=== PATIENT | male | born 1970 | race Caucasian/White ===

== ENCOUNTER 2024-10-15 09:19 | Emergency (ER) | payer OTHER, SELFPAY ==
--- NOTE | ~2024-10-15 | XR_ITS ---
XR toe 1st LT min 2V 10/15/2024 10:01 Indication: Dropped brick on toe 6 weeks ago Procedure: 3 views left first toe Comparison: No prior studies for comparison. Findings: Cortical irregularity noted along the dorsal base of the first distal phalanx seen on later al view only. No significant soft tissue abnormality. No foreign bodies. Lisfranc joint intact. Impression: 1: Possible nondisplaced fracture dorsal base first distal phalanx seen on one view only. Correlate f or point tenderness. Reviewed, dictated and finalized at location A. Impression: 1: Possible nondisplaced fracture dorsal base first distal phalanx seen on one view only. Correlate for point tenderness.
--- NOTE | 2024-10-15 09:34 | ED.LOWEXIN ---
HPI - Extremity Injury (Lower) General Chief Complaint: Extremity Injury, Lower Stated Complaint: left big toe injury Time Seen by Provider: 10/15/24 09:34 Source: patient, RN notes reviewed and old records reviewed Mode of arrival: ambulatory Limitations: no limitations History of Present Illness HPI Narrative: 53 year male presents to the [facility] with complaints of left big toe pain. Patient reports that 6 weeks ago he dropped a brick on it. Did not seek medical treatment until last week when he went [facility]. Was told the wait was going to be minimum of 3 hours, he left at that time. Patient made an appointment with a foot doctor for 18 October, a primary care provider for the end of October, unsure with to. patient comes in today requesting a referral to a foot doctor And to have his nail removed. Had already attempted putting a hole in the nail through cautery to release the pressure. States he tried it last week. Did not get anything out. Onset (ago): week(s) (6) Related Data Allergies Allergy/AdvReac Type Severity Reaction Status Date / Time No Known Allergies Allergy Unverified 09/09/14 14:30 Review of Systems Review of Systems: All systems reviewed & are unremarkable except as noted in HPI and below Constitutional: Constitutional: Reports no additional constitutional complaints ENT: Reports system reviewed and no additional complaints, except as documented Cardiovascular: Cardiovascular: Reports no additional cardiovascular complaints, Denies chest pain and Denies dyspnea Respiratory: Respiratory: Reports no additional respiratory complaints, Denies chest congestion, Denies cough and Denies dyspnea Musculoskeletal: Musculoskeletal: Reports as per HPI Integumentary/Breasts: Skin/Breast: Reports system reviewed and no additional complaints, except as docu PMFSH Comments At the time of my signature, I reviewed and agree with the nursing past medical, surgical, social, and family history. There is no relevant family history pertinent to the patient complaint. Exam Const: General: cooperative, no acute distress, well developed, alert, uncomfortable and well nourished Nutritional Appearance: well nourished Orientation/consciousness: patient oriented x3 Limitations: no limitations HENMT: Head: normal to inspection Eyes: General: appearance normal, both eyes and all related structures Alignment and Position: alignment normal Neck: Neck: normal visual inspection, full ROM, no lymphadenopathy and no meningeal signs Chest: Chest palpation & inspection: normal inspection of the chest Resp: Effort & Inspection: normal respiratory effort and able to speak in complete sentences Auscultation: clear to auscultation bilaterally, no crackles, no rales, no rhonchi and no wheezes Cardio: Rate: regular rate Skin: General skin exam: normal color and no rashes or lesions noted Neuro: General: patient oriented x3, gait normal, moves all extremities and no meningeal signs Cognition (Neuro): normal cognition Speech: normal speech Gait exam (Neuro): Normal gait present Extrem: General: normal to inspection, full ROM, capillary refill normal and normal gait Right lower extremity: foot Details: tenderness Location: of the great toe, toes with normal ROM and ecchymosis ( right great toe nail) Psych: Appearance: grossly normal and well kempt Mental Status: mental status grossly normal Speech and movement: Normal speech and movement present and Clear speech present Affect: normal affect Attitude: cooperative Course Course Level of Care: Express Care Visit Vital Signs Vital signs: Vital Signs Temperature 98.3 F 10/15/24 09:36 Pulse Rate 55 L 10/15/24 09:36 Respiratory Rate 20 10/15/24 09:36 Blood Pressure 176/88 H 10/15/24 09:36 Pulse Oximetry 100 10/15/24 09:36 Oxygen Delivery Room Air 10/15/24 09:36 Temperature 98.3 F 10/15/24 09:36 Pulse Rate 55 L 10/15/24 09:36 Respiratory Rate 20 10/15/24 09:36 Blood Pressure 176/88 H 10/15/24 09:36 Pulse Oximetry 100 10/15/24 09:36 Oxygen Delivery Room Air 10/15/24 09:36 Reviewed MDM - Extremity Injury (Lower) MDM Narrative Medical decision making narrative: patient sitting in exam room. Nontoxic, vitals stable. Patient presents with 6 weeks of left great toe pain, already has an appointment with primary as well as Podiatry. X-ray done shows fracture, patient placed in a postop shoe, already has appointment with Podiatry discussed patient's blood pressure, already has an appointment with primary he believes on 14 November patient appropriate for outpatient treatment with close follow-up Discharge instructions reviewed with patient, as well as provided in writing per nursing staff. The instructions also include specific and strict return/GO TO THE ER as well as f/u information. All questions have been answered, and the patient deny any further questions with discharge and discharge plan. Some parts of this dictation were generated by voice recognition software and may contain typographical and/or grammatical inaccuracies. Differential Diagnosis Differential diagnosis: Likely other (Contusion, fracture) Imaging Data Radiologist's impression: XR toe 1st LT min 2V 10/15/2024 10:01 Indication: Dropped brick on toe 6 weeks ago Procedure: 3 views left first toe Comparison: No prior studies for comparison. Findings: Cortical irregularity noted along the dorsal base of the first distal phalanx seen on lateral view only. No significant soft tissue abnormality. No foreign bodies. Lisfranc joint intact. Impression: 1: Possible nondisplaced fracture dorsal base first distal phalanx seen on one view only. Correlate for point tenderness. Critical Care Time Critical Care Time Critical Care Time: No Discharge Plan Discharge Clinical Impression: Crushing injury of great toe of left foot, Subungual hematoma of great toe of left foot Patient Disposition: Home, Self-Care Condition: Stable Instructions: Antibiotic Form, Subungual Hematoma (ED) Additional Instructions: follow-up with your primary care provider's already scheduled on the 14 of November. Today your blood pressure was 176/88. This definitely needs further evaluation, testing and treatment follow-up with your mash filter operator or foot doctor as already scheduled on the 18 of October. They will be able to do further testing, treatment. the x-ray showed a possible fracture to the great toe. Wear the postop shoe at all times until seen by Podiatry rest, ice and elevate every 2-3 hours for 15-20 minutes while awake. Take Tylenol as needed for pain per package instructions you can try soaking in soapy water and Epson salts twice daily for 15 minutes for new or worsening symptoms go directly to emergency room Patient Language: Khmer Follow-up/Referrals: PHYSICIAN,EDITOR DEPARTMENT [Primary Care Provider] - Time of Disposition: 10:25
[2024-10-15 09:36] VITALS: BP 176/88; PULSE 55; RESP 20; TEMP 36.8; O2SAT 100
--- OUTSIDE RECORDS SUMMARY | 2024-10-15 10:01 | XMS_ITS | Clinical Summary ---
Author Organization [facility] Address [address] [place] [address] Care Team Providers Care Aircraft Engine Mechanic Supervisor Name Role Phone No, Physician Primary Care Provider [phone] Allergies No known active allergies Medications ondansetron ODT (ZOFRAN-ODT) 4 mg disintegrating tablet Take 1 tablet (4 mg total) by mouth every 8 (eight) hours as needed for nausea or vomiting 20 tablet 0 Active amoxicillin-clavula flo (AUGMENTIN) 875-125 mg per tablet Take 1 tablet by mouth every 12 (twelve) hours 14 tablet 4 Active Active Problems Problem Noted Date Diagnosed Date Diverticulitis 09/16/2019 Assessment & Plan (09/18/2019 5:03 PM CLOUD ADMINISTRATOR): With microperforations. NPO, IVF, Antibiotics, symptomatic treatment. Surgery consulted Trial of clears per surgery diet being advanced. Pain meds changed to oral Tobacco abuse 09/16/2019 Assessment & Plan (09/16/2019 7:01 PM CLOUD ADMINISTRATOR): Pt declines nicotine patch Marijuana abuse 09/16/2019 Assessment & Plan (09/16/2019 7:02 PM CLOUD ADMINISTRATOR): Advised to quit Alcohol abuse 09/16/2019 Assessment & Plan (09/16/2019 7:02 PM CLOUD ADMINISTRATOR): Monitor for DT's, prn ativan ordered Encounters Date Type Department Care Team Description 10/06/2024 11:02 AM CDT - 10/06/2024 12:16 PM CDT Emergency [facility] Emergency Department [address] [place] [address] Left against medical advice (Primary Dx) Discharge Disposition: Left Against Medical Advice from Last 3 Months Surgical History Surgery Date Site/Laterality Comments FACIAL FRACTURE SURGERY Medical History Medical History Date Comments Smoker Alcohol abuse Social History Tobacco Use Types Packs/Day Years Used Date Smoking Tobacco: Every Day Cigarettes Smokeless Tobacco: Never Tobacco Cessation:Ready to Q uit: No; Counseling Given: No Alcohol Use Standard Drinks/Week Comments Yes 0 (1 standard drink = 0.6 oz pur e alcohol) PHQ-2 Answer Date Recorded PHQ-2 Score 0 09/16/2019 Personal Safety Answer Date Recorded Have you ever been in or are you currently in a harmful physical or emotional relationship or is someone making you feel afraid or unsafe? Denies 10/06/2024 Sex and Gender Information Value Date Recorded Sex Assigned at Not on file Legal Sex Male 8:32 AM CLOUD ADMINISTRATOR Gender Identity Not on file Sexual Orientation Not on file Obstetrics History Last Filed Vital Signs Vital Sign Reading Time Taken Comments Blood Pressure 158/87 10/06/2024 10:05 AM CDT Pulse 55 10/06/2024 10:05 AM CDT Temperature 37.2 C (98.9 F) 10/06/2024 10:05 AM CDT Respiratory Rate 16 10/06/2024 10:05 AM CDT Oxygen Saturation 100% 10/06/2024 10:05 AM CDT Inhaled Oxygen Concentration - - Weight 83 kg (183 lb) 10/06/2024 10:05 AM CDT Height 180.3 cm (5' 11 ) 10/06/2024 10:05 AM CDT Body Mass Index 25.52 10/06/2024 10:05 AM CDT Plan of Treatment Health Maintenance Due Date Last Done Comments Colon Cancer Screening-Colonoscopy 1968 Hepatitis C Screening 1968 Prostate Cancer Screening-PSA 1968 DTaP/Tdap/Td Vaccine (1 - Tdap) 11/08/1979 Hepatitis B Screening 1986 Regular Well Visit/Exam 18-64 1986 Pneumococcal vaccine <65 (1 of 2 - PCV) 11/08/1987 Zoster Vaccine (1 of 2) 2018 Depression Screening 09/15/2020 09/16/2019 Influenza Vaccine (#1) 2024 Medical Devices Implanted Type Area Corporate Legal Manager Device Identifier Shelf Expiration Date Model / Serial / Lot Other - See Comments Other - see comments N/A: Head Insurance [facility] Advance Directives For more information, please contact: [phone] * Full Code (Latest Code Status on File) Date Activated Date Inactivated Comments 09/16/2019 7:07 PM 09/20/2019 4:18 PM Care Teams Aircraft Engine Mechanic Supervisor Relationship Specialty Start Date End Date No, Physician PCP - General 09/16/19
--- OUTSIDE RECORDS SUMMARY | 2024-10-15 10:01 | XMS_ITS | Referral Summary ---
Author Organization [facility] Address [address] [place] [address] Care Team Providers Care Admitting Supervisor Name Role Phone No, Physician Primary Care Provider [phone] Encounters Date Type Department Care Team Description 10/06/2024 11:02 AM CDT - 10/06/2024 12:16 PM CDT Emergency [facility] Emergency Department [address] [place] [address] Left against medical advice (Primary Dx) Discharge Disposition: Left Against Medical Advice from Last 3 Months Allergies No known active allergies Medications ondansetron [...] 09/16/2019 Assessment & Plan (09/18/2019 5:03 PM RIVERS AND LAKES BOATMAN): With microperforations. NPO, IVF, Antibiotics, symptomatic treatment. Surgery consulted Trial of clears per surgery diet being advanced. Pain meds changed to oral Tobacco abuse 09/16/2019 Assessment & Plan (09/16/2019 7:01 PM [employer]IV[employer] AND LAK[employer] BOATMAN): Pt declines nicotine patch Marijuana abuse 09/16/2019 Assessment & Plan (09/16/2019 7:02 PM RIVERS AND LAK[employer] BOATMAN): Advised to quit Alcohol abuse 09/16/2019 Assessment & Plan (09/16/2019 7:02 PM RIVERS AND LAK[employer] BOATMAN): Monitor for DT's, prn ativan ordered Social History Tobacco Use Types Packs/Day Years [...] on file Legal Sex Male 8:32 AM RIVERS AND LAK[employer] BOATMAN Gender Identity Not on file Sexual Orientation Not on file Last Filed Vital Signs Vital Sign Reading [...] 10/06/2024 10:05 AM CDT Plan of Treatment Not on file Medical Devices Implanted Type Area Legal Research Analyst Device Identifier Shelf Expiration Date Model / Serial / Lot Other - See Comments Other - see comments N/A: Head Insurance [facility] Advance Directives For more information, please contact: [phone] * Full Code (Latest Code Status on File) Date Activated Date Inactivated Comments 09/16/2019 7:07 PM 09/20/2019 4:18 PM Care Teams Admitting Supervisor Relationship Specialty Start Date End Date No, Physician PCP - General 09/16/19
--- OUTSIDE RECORDS SUMMARY | 2024-10-15 10:01 | XMS_ITS | Clinical Summary ---
Author Organization [facility] Address [address] [place] [address] Phone Care Team Providers Care Bottle Labeler Name Role Phone Provider, None Primary Care Provider Unavailabl e Allergies No known active allergies Medications albuterol 108 (90 Base) MCG/ACT Aerosol Solution take 2 Puffs by inhalation every 6 hours as needed for Cough. 18 g 2 Active Active Problems No known active problems Social History Tobacco Use Types Packs/Day Years Used Date Smoking Tobacco: Every Day Cigarettes 1 35 Alcohol Use Standard Drinks/Week Comments Yes 35 (1 standard drink = 0.6 oz pu re alcohol) Sex and Gender Information Value Date Recorded Sex Assigned at Not on file Legal Sex Male 8:07 PM CDT Gender Identity Not on file Sexual Orientation Not on file Last Filed Vital Signs Vital Sign Reading Time Taken Comments Blood Pressure 113/75 07/02/2022 11:00 PM FLOOR COVERINGS INSTALLER Pulse 80 07/02/2022 11:10 PM FLOOR COVERINGS INSTALLER Temperature 36.1 C (96.9 F) 07/02/2022 9:23 PM FLOOR COVERINGS INSTALLER Respiratory Rate 13 07/02/2022 11:10 PM FLOOR COVERINGS INSTALLER Oxygen Saturation 95% 07/02/2022 11:10 PM FLOOR COVERINGS INSTALLER Inhaled Oxygen Concentration - - Weight 86.2 kg (190 lb) 07/02/2022 9:23 PM FLOOR COVERINGS INSTALLER Height 180.3 cm (5' 11 ) 09/16/2019 11:55 AM FLOOR COVERINGS INSTALLER Body Mass Index 26.5 09/16/2019 11:55 AM FLOOR COVERINGS INSTALLER Plan of Treatment Health Maintenance Due Date Last Done Comments Hepatitis C Virus (HCV) Screening 1968 TdaP Immunization 1968 Pneumococcal Immunization Co mbined (1 of 2 - PCV) 1974 Hepatitis B Immunization (1 of 3 - 19+ 3-dose series) 11/08/1987 Colonoscopy 2013 Colorectal Cancer Screening 2013 Cologuard 2018 Immunochemical Fecal Occult Blood 2018 Pneumococcal Immunization (5 0+ years) (1 of 1 - PCV) 2018 Zoster Immunization (1 of 2) 2018 PSA Discussion 11/08/2023 Influenza Immunization (#1) 2024 SARS-COV-2 Immunization (1 - 2023- season) 2024 Respiratory Syncytial Virus (RSV) Immunization (Adult) (1 - 1-dose 75+ series) 11/08/2043 Meningococcal Immunization (ACWY) Aged Out No longer eligible based on patient's age to complete this topic Rotavirus Immunization Aged Out No lo nger eligible based on patient's age to complete this topic Insurance MEDICAID [facility] Care Teams Bottle Labeler Relationship Specialty Start Date End Date Provider, None [place] PCP - General 09/16/19
== END 2024-10-15 10:40 | disposition home or self-care (01) ==
PROVIDERS: Emergency Provider Nurse Practitioner
DX: S97.112A Crushing injury of left great toe, initial encounter (principal); W20.8XXA Other cause of strike by thrown, projected or falling object, initial encounter; S90.212A Contusion of left great toe with damage to nail, initial encounter
CPT/HCPCS: 73660; 99213; G0463